=== PATIENT | female | born 1990 | race African-American/Black ===

== ENCOUNTER 2021-09-23 16:42 | Inpatient (IN) | payer MEDICAID ==
[~2021-09-23] VITALS: Ht 167.6 cm; Wt 65.9 kg
[2021-09-23] MEDS ORDERED: albuterol (16:55)
[2021-09-23] MEDS ORDERED: ALBUTEROL (0.083%) 2.5MG/3ML NEB HHN STA (17:33)
[2021-09-23] MEDS ORDERED: IPRATROPIUM BROMIDE (0.02%) 0.5MG/2.5ML NEB HHN STA (17:33)
[2021-09-23] MEDS ORDERED: PREDNISONE 20MG TABLET PO STA (17:33)
[2021-09-23] MEDS ORDERED: MAGNESIUM 2 G PREMIX 50 ML IV ONE (23:15)
[2021-09-24] MEDS ORDERED: ALBUTEROL (0.083%) 2.5MG/3ML NEB HHN ONE (01:15)
[2021-09-24 13:19] VITALS: BP 99/64
[2021-09-24] MEDS ORDERED: ALBU6.7H9 INH (13:44)
[2021-09-24] MEDS ORDERED: ONDANSETRON HCL 4MG/2ML INJ IV PRN (13:45)
[2021-09-24] MEDS ORDERED: ACETAMINOPHEN 325MG TABLET PO PRN (13:45)
[2021-09-24] MEDS ORDERED: METHYLPREDNISOLONE SOD SUCC 125 MG/2 ML VIAL IV SCH (14:00)
[2021-09-24] MEDS ORDERED: ALBU18HF2 IH (14:03)
[2021-09-24] MEDS ORDERED: FLUT1DIS3 INH (14:03)
[2021-09-24] MEDS ORDERED: P20 MT (14:03)
[2021-09-24 14:13] VITALS: BP 99/64
[2021-09-24] MEDS ORDERED: IPRATROPIUM/ALBUTEROL 0.5-3(2.5)MG/3ML NEB HHN SCH (16:00)
== END 2021-09-24 14:30 | disposition home or self-care (01) | DRG 141 ==
LOC: ER 16:42 → 8WST 09-24 02:08 → CANRESERV 09-24 07:19 → ENRESERV 09-24 07:19
PROVIDERS: ADMIT Internal Medicine; ATTEND Internal Medicine
DX: J45.901 Unspecified asthma with (acute) exacerbation (principal); Z20.822 Contact with and (suspected) exposure to COVID-19; Z98.891 History of uterine scar from previous surgery; Z79.899 Other long term (current) drug therapy
CPT/HCPCS: 87426; 94640; 94644; 99285; J2930; J3475; J7512

== ENCOUNTER 2024-05-04 09:48 | Emergency (ER) | payer MEDICAID ==
[~2024-05-04] VITALS: Ht 170.2 cm; Wt 68.0 kg
[~2024-05-04 09:48] MED LIST: ALBU18HF2 IH; ALBU6.7H3 INH; FLUT1DIS3 INH; P20 MT; albuterol
[2024-05-04 09:51] VITALS: O2SAT 96
[2024-05-04] MEDS: METHYLPREDNISOLONE SOD SUCC 125MG/2ML (ACT-O-VIAL) IV ONE (10:20)
[2024-05-04] MEDS: FAMOTIDINE 20MG/2ML VIAL IV ONE (11:07)
[2024-05-04] MEDS ORDERED: P50 PO (11:54)
[2024-05-04] MEDS ORDERED: EPIN0.3P3 IM (11:54)
[2024-05-04 12:35] VITALS: BP 98/62; PULSE 98; RESP 18; TEMP 97.7
[2024-05-05] MEDS ORDERED: HYDR-4233 TP (12:14)
== END 2024-05-04 12:37 | disposition home or self-care (01) ==
LOC: ER 09:48
DX: T78.40XA Allergy, unspecified, initial encounter (principal); J45.909 Unspecified asthma, uncomplicated; Z79.899 Other long term (current) drug therapy; Z98.890 Other specified postprocedural states; X58.XXXA Exposure to other specified factors, initial encounter
CPT/HCPCS: 99284; 96374; 96375; J3490; J2919

== ENCOUNTER 2024-05-05 10:51 | Emergency (ER) | payer MEDICAID ==
[~2024-05-05] VITALS: Ht 162.6 cm; Wt 60.0 kg
[~2024-05-05 10:51] MED LIST changes: +EPIN0.3P3 IM; +P50 PO
[2024-05-05 11:01] VITALS: BP 130/83; TEMP 98.2
[2024-05-05] MEDS: DEXAMETHASONE 10 MG/ML VIAL IM ONE (11:31)
[2024-05-05] MEDS: IPRATROPIUM/ALBUTEROL 0.5-3(2.5)MG/3ML NEB HHN ONE (11:34)
[2024-05-05 11:37] VITALS: PULSE 95; RESP 22; O2SAT 90
[2024-05-05] MEDS ORDERED: HYDR-4233 TP (12:14)
== END 2024-05-05 12:24 | disposition home or self-care (01) ==
LOC: ER 10:51
DX: T78.40XA Allergy, unspecified, initial encounter (principal); J45.901 Unspecified asthma with (acute) exacerbation; Z98.890 Other specified postprocedural states; X58.XXXA Exposure to other specified factors, initial encounter
CPT/HCPCS: 71045; 94640; 96372; 99283; J1100; Z7610